=== PATIENT | female | born 1995 | race American Indian/Alaskan Native ===

== ENCOUNTER 2017-01-20 15:50 | Emergency (ER) | payer SELFPAY ==
[2017-01-20] MEDS ORDERED: DECADRON PO ONE (17:06)
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
[2017-01-20 20:03] VITALS: BP 122/78
--- NOTE | 2017-01-21 07:36 | XRay Report ---
AP AND LATERAL SOFT TISSUES OF THE NECK: History: Throat pain. There is poor expansion of the pharyngeal structures on the lateral image. No prevertebral soft tissue swelling is apparent. No mass density or foreign body is evident. The upper trachea appears widely patent. Normal bony structures. IMPRESSION: No abnormality identified.
== END 2017-01-20 19:59 | disposition home or self-care (01) ==
LOC: ED 15:50
DX: T76.21XA Adult sexual abuse, suspected, initial encounter (principal); J02.9 Acute pharyngitis, unspecified; F12.10 Cannabis abuse, uncomplicated; J45.909 Unspecified asthma, uncomplicated
CPT/HCPCS: 70360; 99283; J8540

== ENCOUNTER 2017-02-22 18:37 | Emergency (ER) | payer SELFPAY ==
--- NOTE | 2017-02-22 18:58 | Emergency Department Report ---
Chief Complaint: Abdominal Pain Stated Complaint: ABD PAIN Time Seen by Provider: 02/22/17 18:55 - HPI History of Present Illness: pt reports pelvic pain and urinary frequency that started today - ROS Review of Systems: - vaginal bleeding (lmp September) -fever - Exam Physical Exam: pt looks well, non toxic + suprapubic tenderness MSE screening note: Focused history and physical exam performed. Due to findings the following was ordered: labs ED Disposition for MSE Condition: Stable
[2017-02-22 18:59] VITALS: BP 117/70
[2017-02-22 20:46] LABS: Bilirubin,Urine NEG (Negative); Blood,Urine NEG (Negative); Ketones,Urine NEG (Negative); Leukocyte Esterase,Urine MOD (Negative); Mucus,Urine FEW /HPF; Nitrite,Urine NEG (Negative); Protein,Urine <15 mg/dL mg/dL (Negative); Urobilinogen,Urine < 2.0 mg/dL (<2.0)
--- NOTE | 2017-02-26 00:17 | ED Elopement Review ---
ED Pt Elopement review - Results review Lab results: Laboratory Tests 02/22/17 20:00 Urine Color Yellow Urine Turbidity Clear Urine pH 6.0 Ur Specific [place] 1.016 Urine Protein <15 mg/dl Urine Glucose (UA) Neg Urine Ketones Neg Urine Blood Neg Urine Nitrite Neg Urine Bilirubin Neg Urine Urobilinogen < 2.0 Ur Leukocyte Esterase Mod Urine WBC (Auto) 3.0 Urine RBC (Auto) 1.0 U Epithel Cells (Auto) 7.0 Urine Mucus Few Urine HCG, Qual Negative - Call Back decision Pt Call Back Decision: No action required
== END 2017-02-23 05:11 | disposition left against medical advice (07) ==
LOC: ED 18:37
DX: R10.9 Unspecified abdominal pain (principal); Z53.21 Procedure and treatment not carried out due to patient leaving prior to being seen by health care provider
CPT/HCPCS: 81001; 81025

== ENCOUNTER 2017-06-02 06:46 | Emergency (ER) | payer OTHER ==
[2017-06-02 06:57] VITALS: BP 126/80
--- NOTE | 2017-06-02 08:33 | Emergency Department Report ---
HPI - General Chief Complaint: Upper Respiratory Infection Time Seen by Provider: 06/02/17 08:22 - HPI HPI: Patient is a 22-year-old female with a history of asthma who presents to ED complaining of cough and congestion times a couple weeks. Patient states she is coughing so intermittently that's causing her to have chest pains when she coughs. SHe denies fevers/chills/nauseous has vomited this abdominal pain/shortness of breath. ED Past Medical Hx - Past Medical History Previous Medical History?: Yes Hx Seizures: Yes Hx Psychiatric Treatment: Yes Hx Asthma: Yes - Surgical History Past Surgical History?: No - Social History Smoking Status: Never Smoker Substance Use Type: None - Medications Home Medications: Home Medications Medication Instructions Recorded Confirmed Last Taken Type ALBUTEROL Inhaler [ProAir HFA 2 puff IH QID PRN #1 pump 06/02/17 Unknown Rx Inhaler] guaiFENesin [Robitussin] 200 mg PO Q6HR #20 tablet 06/02/17 Unknown Rx predniSONE [Deltasone] 20 mg PO QDAY #5 tab 06/02/17 Unknown Rx ED Review of Systems ROS: Stated complaint: SHERMAN Other details as noted in HPI Constitutional: denies: chills, fever Eyes: denies: eye pain, eye discharge, vision change ENT: congestion. denies: ear pain, throat pain Respiratory: cough. denies: shortness of breath, wheezing Cardiovascular: denies: chest pain, palpitations Endocrine: no symptoms reported Gastrointestinal: denies: abdominal pain, nausea, diarrhea Genitourinary: denies: urgency, dysuria, discharge Musculoskeletal: denies: back pain, joint swelling, arthralgia Skin: denies: rash, lesions Neurological: denies: headache, weakness, paresthesias Psychiatric: denies: anxiety, depression Hematological/Lymphatic: denies: easy bleeding, easy bruising Physical Exam - Physical Exam Vital Signs: GENERAL: Alert and oriented x3, no apparent distress, Normal Gait, atraumatic. HEAD: Head is normocephalic and a-traumatic. EYES: Extra ocular muscles are intact. Pupils are equal, round, and reactive to light and accommodation. EARS: symetrical, atraumatic, non tender, ear canal clear and moderate cerumen, tympanic membrance non inflamed. gross auditory nml bilaterally. NOSE: Nose symetrical, Nontender,Nares appeared normal. MOUTH:Mouth is well hydrated and without lesions. Tonsils nonerythematous or swollen, Uvula midline, Tongue not elevated. Mucous membranes are moist. Posterior pharynx clear, no exudate or lesions. Patent airways. NECK: Supple. Non edematous, No carotid bruits. No lymphadenopathy or thyromegaly. No C-spine tenderness LUNGS: Symetrical with respiration, No wheezing, no rales or crackles, CTAB. HEART: S1, S2 present, regular rate and rhythm without murmur, no rubs, no gallops. Non tender to palpation SKIN: Warm and dry, No lesions, No ulceration or induration present. ED Course Vital Signs 06/02/17 06:53 Temperature 98.7 F Pulse Rate 109 H Blood Pressure 126/80 O2 Sat by Pulse 100 Oximetry ED Medical Decision Making - Radiology Data Radiology results: report reviewed, image reviewed cc: MICHAEL Meadows Time In Minutes: Chest 2 views: History: Cough. Findings: Normal cardiomediastinal silhouette. Trachea is midline. No consolidation, pneumothorax or pleural effusion. Impression: No acute cardiopulmonary findings. Transcribed By: PTP Dictated By: OLIVIA DOYLE MD Electronically Authenticated By: OLIVIA DOYLE MD Signed Date/Time: 06/02/17838 DD/ 7 TD/TT: 06/02/17838 - Medical Decision Making 22.-year-old female presents with upper respiratory infection with bronchitis ED course: She received medication in the ED. I discussed the patient to follow up primary care physician. I discussed with the patient and take medication as prescribed. Vital signs normal patient is in no acute respiratory distress. I discussed the patient will if symptoms worsen to return immediately to the ED Critical care attestation.: If time is entered above; I have spent that time in minutes in the direct care of this critically ill patient, excluding procedure time. ED Disposition Clinical Impression: Bronchitis URI (upper respiratory infection) Qualifiers: URI type: unspecified URI Qualified Code(s): J06.9 - Acute upper respiratory infection, unspecified Disposition: - TO HOME OR SELFCARE Is pt being admited?: No Does the pt Need Aspirin: No Condition: Stable Instructions: Upper Respiratory Infection (ED), Chronic Bronchitis (ED) Additional Instructions: Make sure to follow up with the primary care physician as discussed. Take all your medications as you've been prescribed. If you have any worsening symptoms or develop new symptoms please return to ED immediately. Prescriptions: ALBUTEROL Inhaler [ProAir HFA Inhaler] 2 puff IH QID PRN #1 pump PRN Reason: Shortness Of Breath guaiFENesin [Robitussin] 200 mg PO Q6HR #20 tablet predniSONE [Deltasone] 20 mg PO QDAY #5 tab Referrals: PRIMARY CARE, [Primary Care Provider] - 3-5 Days Forms: Work/School Release Form(ED) Time of Disposition: 09:22
--- NOTE | 2017-06-02 08:56 | XRay Report ---
Chest 2 views: History: Cough. Findings: Normal cardiomediastinal silhouette. Trachea is midline. No consolidation, pneumothorax or pleural effusion. Impression: No acute cardiopulmonary findings.
== END 2017-06-02 09:45 | disposition home or self-care (01) ==
LOC: ED 06:46
DX: J40 Bronchitis, not specified as acute or chronic (principal); J06.9 Acute upper respiratory infection, unspecified
CPT/HCPCS: 71020; 81025; 99284

== ENCOUNTER 2017-07-29 23:50 | Emergency (ER) | payer SELFPAY ==
[2017-07-30 01:12] LABS: Basophils % (Auto) 0.6 % (0.0-1.8); Eosinophils # (Auto) 0.1 K/mm3 (0.0-0.4); Hematocrit 33.6 % (30.3-42.9); Hemoglobin 10.6 gm/dl (10.1-14.3); Lymphocytes # (Auto) 2.2 K/mm3 (1.2-5.4); Lymphocytes % (Auto) 37.8 % (13.4-35.0); Mean Corpuscular HGB Conc 31 % (30-34); Mean Corpuscular Volume 82 fl (79-97); Monocytes # (Auto) 0.6 K/mm3 (0.0-0.8); Monocytes % (Auto) 10.2 % (0.0-7.3); Platelet Count 273 K/mm3 (140-440); Red Blood Count 4.12 M/mm3 (3.65-5.03); Red Cell Distribution Width 18.2 % (13.2-15.2)
[2017-07-30 01:17] LABS: Mean Corpuscular Hemoglobin 26 pg (28-32)
[2017-07-30 01:24] LABS: BUN/Creatinine Ratio 23; Blood Urea Nitrogen 9 mg/dL (7-17); Calcium 8.7 mg/dL (8.4-10.2); Hemolysis Index 8
--- NOTE | 2017-07-30 02:20 | XRay Report ---
FINAL REPORT PROCEDURE: XR CHEST ROUTINE 2V TECHNIQUE: PA and lateral chest radiographs were obtained. CPT 14790 HISTORY: Shortness of breath COMPARISON: No prior studies are available for comparison. FINDINGS: Heart: Normal. Mediastinum/Vessels: Normal. Lungs/Pleural space: Lungs are clear. There are no infiltrates, effusions or pneumothoraces per. Bony thorax: No acute osseous abnormality. Other: IMPRESSION: Normal heart and lungs..
[2017-07-30 04:51] LABS: Bilirubin,Urine NEG (Negative); Blood,Urine NEG (Negative); Color,Urine Yellow (Yellow); Mucus,Urine 2+ /HPF; Nitrite,Urine NEG (Negative); Protein,Urine <15 mg/dL mg/dL (Negative); Urobilinogen,Urine < 2.0 mg/dL (<2.0)
[2017-07-30 05:00] VITALS: BP 125/85
[2017-07-30] MEDS ORDERED: TYLENOL PO ONE (05:13)
--- NOTE | 2017-07-30 05:20 | Emergency Department Report ---
HPI - General Chief Complaint: Chest Pain Time Seen by Provider: 07/30/17 05:06 - HPI HPI: The patient is a 22-year-old female presents for evaluation of chest pain. The patient reports chest pain for the past one day, sharp in quality, exacerbated with movement, currently mild, 5/10 in severity, and improved with rest. The patient denies fever, neck pain, parasthesias, dyspnea, cough, hemoptysis, palpitations, dizziness, syncope, unilateral leg swelling, calf muscle pain. Patient also denies cocaine or other stimulant use, history of DVT or PE, recent immobilization, or history of cancer. ED Past Medical Hx - Past Medical History Previous Medical History?: Yes Hx Seizures: Yes Hx Psychiatric Treatment: Yes Hx Asthma: Yes - Surgical History Past Surgical History?: No - Social History Smoking Status: Former Smoker Substance Use Type: None - Medications Home Medications: Home Medications Medication Instructions Recorded Confirmed Last Taken Type guaiFENesin [Robitussin] 200 mg PO Q6HR #20 tablet 06/02/17 Unknown Rx predniSONE [Deltasone] 20 mg PO QDAY #5 tab 06/02/17 Unknown Rx ALBUTEROL Inhaler [ProAir HFA 2 puff IH QID PRN #1 pump 07/30/17 Unknown Rx Inhaler] Ibuprofen [Motrin] 800 mg PO Q8HR PRN #15 tablet 07/30/17 Unknown Rx Omeprazole Magnesium [PriLOSEC Otc] 20 mg PO QDAY #14 tablet. 07/30/17 Unknown Rx levETIRAcetam [Keppra TAB] 500 mg PO BID #30 tablet 07/30/17 Unknown Rx ED Review of Systems ROS: Stated complaint: CHEST PAIN, SHERMAN Other details as noted in HPI Constitutional: denies: fever ENT: denies: throat or neck pain Respiratory: denies: cough, shortness of breath Cardiovascular: reports chest pain Endocrine: denies unexplained weight loss or gain Gastrointestinal: denies: abdominal pain, nausea Genitourinary: denies: dysuria Musculoskeletal: denies: leg swelling Skin: denies: rash Neurological: denies: headache Hematological/Lymphatic: denies: easy bleeding or easy bruising Psych: denies sadness or hopelessness Physical Exam - Physical Exam Vital Signs: Vital Signs 07/30/17 07/30/17 07/30/17 00:30 04:27 04:31 Temperature 97.4 F L 97.9 F Pulse Rate 87 78 Respiratory 16 18 Rate Blood Pressure 116/84 Blood Pressure 116/79 [Right] O2 Sat by Pulse 100 97 Oximetry 07/30/17 04:59 Temperature 98.5 F Pulse Rate 79 Respiratory 15 Rate Blood Pressure Blood Pressure 125/85 [Right] O2 Sat by Pulse 100 Oximetry Physical Exam: General: well-nourished, well-developed, no acute distress Head: Normocephalic, atraumatic Eyes: normal sclera ENT: Mucous membranes are pink and moist Neck: trachea midline, neck supple, No neck stiffness, no cervical adenopathy Respiratory: Breath sounds equal bilaterally, no wheezing, rales, or rhonchi Cardio: S1 and S2 present, no murmurs, rubs, gallops, capillary refill is brisk Abdomen: Normoactive bowel sounds, soft abdomen, no rigidity, no guarding or rebound tenderness Musc: No pitting edema Skin: No rash Neuro: no facial drooping, normal speech Psych: Normal affect ED Course Vital Signs 07/30/17 07/30/17 07/30/17 00:30 04:27 04:31 Temperature 97.4 F L 97.9 F Pulse Rate 87 78 Respiratory 16 18 Rate Blood Pressure 116/84 Blood Pressure 116/79 [Right] O2 Sat by Pulse 100 97 Oximetry 07/30/17 04:59 Temperature 98.5 F Pulse Rate 79 Respiratory 15 Rate Blood Pressure Blood Pressure 125/85 [Right] O2 Sat by Pulse 100 Oximetry ED Medical Decision Making - Lab Data Result diagrams: 07/30/17 00:49 07/30/17 00:49 - Medical Decision Making The patient was seen and examined by myself. The patient is placed on a cardiac cath lab manager and continuous pulse ox. On initial evaluation, the patient was found to be in no distress. EKG was negative for findings suggestive of acute cardiac infarct. Labs and imaging are obtained. The patient is given Tegretol for her pain. Chest x-ray is negative for pneumothorax, focal consolidation, pulmonary vascular congestion, pleural effusion, or other obvious acute cardiopulmonary disease process. Lab results were non-concerning including levels of troponin, WBC, hemoglobin, hematocrit, electrolytes, renal function. The patient was reevaluated and reported that their symptoms were markedly improved. As the patient has a SARI risk score less than 2, and a well's score less than 2, the patient is at low risk of ACS or pulmonary emboli etiology of their symptoms. The patient is stable for discharge with outpatient follow-up. The patient is given follow-up and return instructions. The patient expressed understanding and agreed with the plan. The patient is discharged in stable condition. Critical care attestation.: If time is entered above; I have spent that time in minutes in the direct care of this critically ill patient, excluding procedure time. ED Disposition Clinical Impression: Acute chest pain Disposition: TO HOME OR SELFCARE Is pt being admited?: No Does the pt Need Aspirin: No Condition: Stable Instructions: Chest Pain (ED), Costochondritis (ED), Peptic Ulcer (ED) Prescriptions: ALBUTEROL Inhaler [ProAir HFA Inhaler] 2 puff IH QID PRN #1 pump PRN Reason: Shortness Of Breath Ibuprofen [Motrin] 800 mg PO Q8HR PRN #15 tablet PRN Reason: Pain levETIRAcetam [Keppra TAB] 500 mg PO BID #30 tablet Omeprazole Magnesium [PriLOSEC Otc] 20 mg PO QDAY #14 tablet. Referrals: [facility] [Provider Group] - 3-5 Days Time of Disposition: 05:13
== END 2017-07-30 05:59 | disposition home or self-care (01) ==
LOC: ED 23:50
DX: R07.89 Other chest pain (principal); R56.9 Unspecified convulsions; J45.909 Unspecified asthma, uncomplicated; Z87.891 Personal history of nicotine dependence
CPT/HCPCS: 36415; 71046; 80048; 81001; 84484; 84703; 85025; 93005; 93010; 99285

== ENCOUNTER 2017-07-31 17:10 | Emergency (ER) | payer SELFPAY ==
[2017-07-31] MEDS ORDERED: ATIVAN IV ONE (18:16)
[2017-07-31 18:48] LABS: BUN/Creatinine Ratio 20; Blood Urea Nitrogen 8 mg/dL (7-17); Calcium 7.8 mg/dL (8.4-10.2); Hemolysis Index 192
[2017-07-31 18:59] LABS: Hematocrit 32.2 % (30.3-42.9); Hemoglobin 10.2 gm/dl (10.1-14.3); Mean Corpuscular HGB Conc 32 % (30-34); Mean Corpuscular Volume 80 fl (79-97); Platelet Count 246 K/mm3 (140-440); Red Blood Count 4.01 M/mm3 (3.65-5.03)
[2017-07-31 19:09] LABS: Mean Corpuscular Hemoglobin 25 pg (28-32)
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
[2017-07-31 21:01] VITALS: BP 102/67
== END 2017-07-31 20:59 | disposition home or self-care (01) ==
LOC: ED 17:10
DX: R56.9 Unspecified convulsions (principal); E11.9 Type 2 diabetes mellitus without complications; J45.909 Unspecified asthma, uncomplicated; F17.200 Nicotine dependence, unspecified, uncomplicated; F12.10 Cannabis abuse, uncomplicated; Z91.018 Allergy to other foods
CPT/HCPCS: 36415; 80048; 84703; 85027; 96374; 99284; J2060